=== PATIENT | female | born 2000 ===

== ENCOUNTER → 2024-08-09 08:50 | Outpatient (BNV) | payer OTHER, SELFPAY | PROVIDERS: Visit Provider Internal Medicine | DX: R00.2 Palpitations (principal) | CPT/HCPCS: 93244 ==

== ENCOUNTER → 2024-08-09 15:30 | Outpatient (REF) | payer OTHER, SELFPAY | LOC: HO.CARD 15:30 | PROVIDERS: Visit Provider Family Medicine | DX: R00.2 Palpitations (principal) | CPT/HCPCS: 93242 ==